=== PATIENT | male | born 1990 | race Caucasian/White ===

== ENCOUNTER 2022-05-10 20:07 | Emergency (ER) | payer BC ==
[~2022-05-10] VITALS: Ht 185.4 cm; Wt 81.6 kg
[2022-05-10 20:23] VITALS: BP_SYST 126
[2022-05-10] MEDS ORDERED: CLINDAMYCIN HCL 150 MG CAPSULE PO ONE (22:30)
[2022-05-10] MEDS ORDERED: IBUPROFEN 600 MG TABLET PO ONE (22:30)
--- NOTE | 2022-05-10 22:34 | NUR ---
PT PRESENTED TO THE ER WITH COMPLAINT OF ABCES ON RIGHT CHEEK AND LEFT HAND. PT DENIES PAIN. PT IS AOX4 VS ARE WITHIN NORMAL LIMITS. WITH THE EXCEPTION OF BP, DR PERES MADE AWARE NO CHANGE IN ORDERS
[2022-05-10] MEDS ORDERED: LIDOCAINE 1% 10 MG/ML, 20 ML MDV INJ ONE (23:15)
[2022-05-10] MEDS ORDERED: CLIN-142 PO ×3 (23:26→23:37)
[2022-05-10] MEDS ORDERED: NAPR-686 PO ×3 (23:26→23:37)
[2022-05-10] MEDS ORDERED: BACITRACIN 1 GM OINT TP ONE (23:56)
[2022-05-10] MEDS ORDERED: CLINDAMYCIN HCL 150 MG CAPSULE ONE (23:56)
[2022-05-11 00:16] VITALS: BP_SYST 145
--- NOTE | 2022-05-11 00:17 | NUR ---
Patient given written and verbal discharge instructions and verbalizes understanding. ER DR RENETTA BOLANOS discussed with patient the results and treatment provided. Patient in stable condition. ID arm band removed. Rx of CLINDAMYCIN HCL AND NAPROXEN given. Patient educated on pain management and to follow up with PMD. Pain Scale . Opportunity for questions provided and answered. Medication side effect fact sheet provided.
== END 2022-05-11 00:16 | disposition home or self-care (01) ==
LOC: SED 20:07
DX: S61.432A Puncture wound without foreign body of left hand, initial encounter (principal); L02.01 Cutaneous abscess of face; F17.200 Nicotine dependence, unspecified, uncomplicated; Z79.899 Other long term (current) drug therapy; X58.XXXA Exposure to other specified factors, initial encounter; Y93.89 Activity, other specified; Y92.89 Other specified places as the place of occurrence of the external cause; Y99.8 Other external cause status
CPT/HCPCS: 64400; 99284; J2001

== ENCOUNTER 2022-05-29 10:53 | Inpatient (IN) | payer BC ==
[~2022-05-29] VITALS: Ht 180.3 cm; Wt 83.0 kg
[~2022-05-29 10:53] MED LIST: CLIN-142 PO; NAPR-686 PO
--- NOTE | 2022-05-29 11:00 | NUR ---
Pt brought by self, A&Ox4, pt presents to ER with R forearm wound with yellow discharge , per patient he had a mechanical fall, pt afebrile, skin pink and warm, will cont to monitor
[2022-05-29 11:16] VITALS: BP_SYST 145
--- NOTE | 2022-05-29 11:31 | NUR ---
Dr Wells evaluating patient in the triage room
--- NOTE | 2022-05-29 11:33 | NUR ---
Notified ED Admitting regarding Dr. Wells's request for admission/transfer. PerDr. Wells, pt is stabke for transfer. Will notify national insurance officer regarding this matter. PER FACESHEET: [facility]
[2022-05-29] MEDS ORDERED: KETOROLAC TROMETHAMINE 30 MG VIAL IVP ONE (11:45)
[2022-05-29] MEDS ORDERED: NACL 0.9% 2,000 ML IV ONE (11:45)
[2022-05-29] MEDS ORDERED: PIPERACILLIN/TAZO 3.375 GM in NS 50 ML IV ONE (11:45)
--- NOTE | 2022-05-29 11:48 | NUR ---
covid swab done and walked to lab
[2022-05-29] MEDS ORDERED: PIPERACILLIN/TAZOBACTAM 3.375 GM/VIAL (ZOSYN) IV ONE (11:55)
[2022-05-29 12:09] LABS: BASOPHILS # (AUTO) 0.1 K/uL (0.0-0.2); BASOPHILS % (AUTO) 0.5 % (0.0-2.0); EOSINOPHILS # (AUTO) 0.1 K/uL (0.0-0.4); EOSINOPHILS % (AUTO) 0.7 % (0.0-4.0); HEMATOCRIT 29.1 % (36-54); HEMOGLOBIN 10.2 g/dL (14.0-18.0); LYMPHOCYTES % (AUTO) 6.4 % (20.5-51.5); MEAN CORPUSCULAR HEMOGLOBIN 32 pg (27-31); MEAN CORPUSCULAR HGB CONC 35 % (32-36); MEAN CORPUSCULAR VOLUME 91 fL (79.0-98.0); MONOCYTES # (AUTO) 1.2 K/uL (0.0-1.0); MONOCYTES % (AUTO) 7.8 % (1.7-9.3); NEUTROPHILS # (AUTO) 12.7 K/uL (1.8-7.7); NEUTROPHILS % (AUTO) 84.6 % (40.0-70.0); PLATELET COUNT (AUTO) 266 K/uL (130-430); RED BLOOD CELL COUNT(AUTO) 3.19 MIL/uL (4.2-6.2); RED CELL DISTRIBUTION WIDTH 12.6 % (9.0-15.0)
[2022-05-29 12:17] LABS: CALCIUM 8.5 mg/dL (8.4-11.0); CREATININE 3.49 mg/dL (0.55-1.30); POTASSIUM 3.2 mmol/L (3.5-5.1)
[2022-05-29 12:24] LABS: ALBUMIN 3.2 g/dL (3.4-4.8); TOTAL BILIRUBIN 1.1 mg/dL (0.0-1.0)
--- NOTE | 2022-05-29 14:30 | NUR ---
Report given to Grisel MORALES
[2022-05-29] MEDS ORDERED: MORPHINE 2 MG/ML INJ. SYRINGE IVP PRN ×2 (14:45)
[2022-05-29] MEDS ORDERED: ACETAMINOPHEN 325 MG TABLET PO PRN (14:45)
[2022-05-29] MEDS ORDERED: ZOLPIDEM TARTRATE 5 MG TABLET PO PRN (14:45)
[2022-05-29] MEDS ORDERED: ONDANSETRON HCL 4 MG/2 ML VIAL IVP PRN (14:45)
[2022-05-29] MEDS ORDERED: DOCUSATE SODIUM 100 MG CAPSULE PO PRN (14:45)
[2022-05-29] MEDS ORDERED: cefTRIAXone 1 GM in D5W 50 ML IV SCH (14:45)
[2022-05-29] MEDS ORDERED: NALOXONE HCL 0.4 MG/ML AMP (NARCAN) IVP PRN ×2 (14:45)
[2022-05-29] MEDS ORDERED: MAGNESIUM SULFATE 50 ML IV PRN (14:45)
[2022-05-29] MEDS ORDERED: POTASSIUM CHLORIDE 20 MEQ TAB.PRT.SR PO PRN (14:45)
[2022-05-29] MEDS ORDERED: LORazepam 2 MG/ML VIAL IVP PRN (14:45)
[2022-05-29] MEDS ORDERED: MUPIROCIN 2% TOPICAL OINTMENT 22 GM NS PRN (14:45)
--- NOTE | 2022-05-29 16:29 | NUR ---
urine collected and sent to lab.
--- NOTE | 2022-05-29 16:32 | NUR ---
patient states he is prescribed medication but does not take any medications
--- NOTE | 2022-05-29 16:34 | NUR ---
Admit bed requested Patient will be admitted to care of . Admitted to telemetry unit. Diagnosis right upper extremity cellulitis Inpatient (Yes or No) yes Observation (Yes or No) no Orientation concerns or request close to nursing station (Yes or No) no Covid Status neg On vent or bipap no Isolation requirements no Needs a sitter no From Home (Yes or if No enter name of facility) home Requires Dialysis (Yes or No) no Med Rec Completed (Yes of No) yes
--- NOTE | 2022-05-29 16:37 | NUR ---
patient states he is full code
[2022-05-29] MEDS: NACL 0.9% 1,000 ML IV SCH (17:13)
[2022-05-29 17:57] LABS: BARBITURATE, URINE NEGATIVE (NEG <=200); BENZODIAZEPINE, URINE NEGATIVE (NEG <=150); CANNABINOID, URINE POSITIVE (NEG <=50); COCAINE, URINE NEGATIVE (NEG <=150); METHAMPHETAMINES SCREEN,URINE POSITIVE (NEG <=500); OPIATE, URINE NEGATIVE (NEG <=100); PHENCYCLIDINE SCREEN,URINE NEGATIVE (NEG <=25); UR TRICYCLIC ANTIDEPRESSANTS NEGATIVE (NEG <=300); URINE AMPHETAMINE POSITIVE (NEG <=500); URINE METHADONE NEGATIVE (NEG <=200); URINE OXYCODONE SCREEN NEGATIVE (NEG <=100); URINE PROPOXYPHENE SCREEN NEGATIVE (NEG <=300)
--- NOTE | 2022-05-29 20:15 | NUR ---
Patient will be admitted to care of dr. yoo. Admitted to telemetry unit. Will go to room 120b. Complete and up to date summary report printed. SBAR report to be given at bedside with opportunity for questions.
[2022-05-29] MEDS: METOPROLOL TARTRATE 25 MG TABLET PO SCH (21:00)
[2022-05-29 21:33] VITALS: BP_SYST 131
--- NOTE | 2022-05-29 22:00 | NUR ---
pt admitted to tele. pt aox4 able to make needs known. rr even and unlabored on ra. iv lac 20g. pt denied wearing a gown. pt has wooden cane at bedside. pictures taken of wounds of head, r arm, and r hand. pulse present, r arm swollen. lung sounds clear. abd sounds present. no edema on ble. pt educated to use call light. hob elevated. all needs meet at this time. will continue to monitor.
[2022-05-29] MEDS: ceFAZolin SODIUM 1 GM in D5W 50 ML IV SCH (22:11)
[2022-05-30 00:05] VITALS: BP_SYST 128
[2022-05-30] MEDS: NACL 0.9% 1,000 ML IV SCH ×2 (00:32→09:32)
[2022-05-30] MEDS: ceFAZolin SODIUM 1 GM in D5W 50 ML IV SCH ×3 (05:32→22:25)
[2022-05-30 08:00] VITALS: BP_SYST 141
--- NOTE | 2022-05-30 08:00 | NUR ---
OPENING NOTES: PATIENT RESTING IN BED. BREATHING EVEN AND NON LABORED TO RA. DENIES ANY DISCOMFORT AT THIS TIME. FALL AND SAFETY MEASURES REINFORCED. CALL LIGHT WITHIN REACH.
[2022-05-30] MEDS: METOPROLOL TARTRATE 25 MG TABLET PO SCH ×2 (09:31→22:28)
[2022-05-30 12:00] VITALS: BP_SYST 138
[2022-05-30 12:38] LABS: BASOPHILS # (AUTO) 0.1 K/uL (0.0-0.2); BASOPHILS % (AUTO) 0.5 % (0.0-2.0); EOSINOPHILS # (AUTO) 0.3 K/uL (0.0-0.4); EOSINOPHILS % (AUTO) 2.4 % (0.0-4.0); HEMATOCRIT 28.8 % (36-54); HEMOGLOBIN 10.3 g/dL (14.0-18.0); LYMPHOCYTES # (AUTO) 1.1 K/uL (1.0-5.5); MEAN CORPUSCULAR HEMOGLOBIN 33 pg (27-31); MEAN CORPUSCULAR HGB CONC 36 % (32-36); MEAN CORPUSCULAR VOLUME 92 fL (79.0-98.0); MONOCYTES # (AUTO) 0.8 K/uL (0.0-1.0); MONOCYTES % (AUTO) 7.7 % (1.7-9.3); NEUTROPHILS # (AUTO) 8.7 K/uL (1.8-7.7); NEUTROPHILS % (AUTO) 79.4 % (40.0-70.0); PLATELET COUNT (AUTO) 272 K/uL (130-430); RED BLOOD CELL COUNT(AUTO) 3.14 MIL/uL (4.2-6.2); RED CELL DISTRIBUTION WIDTH 12.9 % (9.0-15.0)
[2022-05-30 12:54] LABS: CALCIUM 9.1 mg/dL (8.4-11.0); CREATININE 3.07 mg/dL (0.55-1.30); POTASSIUM 3.8 mmol/L (3.5-5.1)
--- NOTE | 2022-05-30 13:09 | NUR ---
PT OPTED TO SET HIS APPOINT W/ PCP: TALKED TO THE PATIENT REGARDING THE NEED TO SET AN APPT W/ PCP. PATIENT REFUSED AND OPTED TO SET HIS OWN APPOINTMENT. Addendum: 05/30/22 at 2007 by Yuan Kenyon RN WRONG ENTRY/ WRONG PATIENT.
--- NOTE | 2022-05-30 15:23 | NUR ---
RETAIL CLERK ACSW Zuleima responded to a request for social service support to address homelessness and polysubstance abuse. ACSW met with patient at bedside. Patient was awake, alert and oriented x4. ACSW completed introductions, reason for referral, provided business card and patient was open to contact. Substance Abuse- Patient text positive for amphetamine, methamphetamine and cannibinoids. 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 Longest period of sobriety [id number] after inpatient rehab. Patient appeared anxious with jerky movements and exhibiting mouth movements typical of meth use. ACSW inquired into last use and he stated he "was still high". He disclosed wanting "to get clean, I need help". Housing- Patient is currently unhoused and residing in an encampment behind [facility] in [place]. Patient declined homeless resources. Social- Patient shares his mother Jessica is part of his support system. He also shared his father but he hasn't spoken to him in about 3 months. Patient was previously , but about 4 months ago. He also shared he has been "in and out of penitentiary most of his life" with his longest [facility]dc term being 4 years. He has been out of [facility]dc for 6 years. Due to patient sharing he is still under the influence of meth and concerns with him "coming down", ACSW discussed the importance of remaining in the facility to address his current condition. ACSW also discussed the impact of substance abuse on physical and mental health. ACSW acknowledged patient's disclosure of his desire to pursue rehab and encouraged him to contact substance abuse resources. ACSW also encouraged patient to explore homeless resources but he again declined. Patient also requested for his mother to be called to inform her of hospitalization. ACSW provided patient with substance abuse resource packet. ACSW contacted patient's mother Jessica to inform her patient was admitted. ACSW will continue to be available as needed
[2022-05-30 16:02] VITALS: BP_SYST 130
--- NOTE | 2022-05-30 16:05 | NUR ---
WOUND DRAINAGE SPECIMEN SENT (right ELBOW) TO LAB AND WC DONE . WOUND DRAINAGE SPECIMEN AT RIGHT ELBOW SENT TO LAB. WOUND CARE EVALUATION DONE BY NURSE.
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
[2022-05-30] MEDS: BALSAM PERU/CASTOR OIL 56.7 GM OINT...G. TP SCH (17:33)
--- NOTE | 2022-05-30 18:55 | NUR ---
CLOSING NOTES: PATIENT RESTING IN BED. NO S/S OF ACUTE DISTRESS NOTED. FALL AND SAFETY MEASURES PROVIDED. CALL LIGHT WITHIN REACH. NEEDS MET THROUGHOUT SHIFT.
[2022-05-30 19:47] VITALS: BP_SYST 150
[2022-05-30 19:57] VITALS: BP_SYST 156
[2022-05-31] VITALS: BP_SYST 129
[2022-05-31] MEDS: NACL 0.9% 1,000 ML IV SCH ×3 (03:58→16:23)
[2022-05-31] MEDS: ceFAZolin SODIUM 1 GM in D5W 50 ML IV SCH ×2 (05:31→14:28)
--- NOTE | 2022-05-31 06:52 | NUR ---
CLOSING NOTE-PT AWAKE AND ORIENTED. RT ARM AND FINGER DRESSING INTACT. NO C/O ANY DISTRESS. TOOK AMBIEN 10 MG ORAL FOR SLEEP AND SLEPT. IVF NS AT100 ML/HR AND GIVEN ANCEF 1 G IVPB EVERY 8 HR. V/S STABLE AFEBRILE. TELE- NSR.
[2022-05-31 07:45] LABS: BASOPHILS % (AUTO) 0.5 % (0.0-2.0); EOSINOPHILS # (AUTO) 0.4 K/uL (0.0-0.4); EOSINOPHILS % (AUTO) 3.3 % (0.0-4.0); HEMATOCRIT 29.9 % (36-54); HEMOGLOBIN 10.6 g/dL (14.0-18.0); LYMPHOCYTES # (AUTO) 1.5 K/uL (1.0-5.5); LYMPHOCYTES % (AUTO) 13.2 % (20.5-51.5); MEAN CORPUSCULAR HEMOGLOBIN 32 pg (27-31); MEAN CORPUSCULAR HGB CONC 36 % (32-36); MEAN CORPUSCULAR VOLUME 91 fL (79.0-98.0); MONOCYTES # (AUTO) 0.8 K/uL (0.0-1.0); MONOCYTES % (AUTO) 7.4 % (1.7-9.3); NEUTROPHILS # (AUTO) 8.3 K/uL (1.8-7.7); NEUTROPHILS % (AUTO) 75.6 % (40.0-70.0); PLATELET COUNT (AUTO) 302 K/uL (130-430); RED BLOOD CELL COUNT(AUTO) 3.27 MIL/uL (4.2-6.2); RED CELL DISTRIBUTION WIDTH 12.6 % (9.0-15.0)
[2022-05-31 08:00] VITALS: BP_SYST 122
[2022-05-31 08:05] LABS: ALBUMIN 2.9 g/dL (3.4-4.8); CREATININE 3.14 mg/dL (0.55-1.30); POTASSIUM 3.9 mmol/L (3.5-5.1); TOTAL BILIRUBIN 0.2 mg/dL (0.0-1.0)
[2022-05-31] MEDS: BALSAM PERU/CASTOR OIL 56.7 GM OINT...G. TP SCH (09:00)
[2022-05-31] MEDS: METOPROLOL TARTRATE 25 MG TABLET PO SCH (09:31)
--- NOTE | 2022-05-31 10:00 | NUR ---
Dietitian Recommendations: - Continue regular diet - Please provide Ensure Enlive BID - Consider multivitamin w/ minerals, vitamin C to support healing Please refer to nutrition assessment for details. YADIRA KOEHLER
[2022-05-31 15:30] VITALS: BP_SYST 135
--- NOTE | 2022-05-31 20:00 | NUR ---
Patient leaves AMA Patient AOx4, BRP. On room air. Stable. Patient insisting on leaving AMA. Educated patient towards plan of care as well as risks of leaving hospital without finishing antibiotic treatment/ further treatments. Patient still insistent regardless. Also notified Dr. Ramirez, covering for Dr. Harrell at this time. Patient signed AMA paper to leave. Left hospital at this time.
[2022-05-31] MEDS ORDERED: CLIN-22 PO (22:16)
== END 2022-05-31 20:00 | disposition left against medical advice (07) | DRG 720 ==
LOC: SED 10:53 → STU 13:11
PROVIDERS: ADMIT General Practice; ATTEND General Practice
DX: A41.9 Sepsis, unspecified organism (principal); N17.0 Acute kidney failure with tubular necrosis; E44.1 Mild protein-calorie malnutrition; L03.113 Cellulitis of right upper limb; D63.8 Anemia in other chronic diseases classified elsewhere; E80.6 Other disorders of bilirubin metabolism; Z20.822 Contact with and (suspected) exposure to COVID-19; F17.210 Nicotine dependence, cigarettes, uncomplicated; N18.9 Chronic kidney disease, unspecified; Z79.899 Other long term (current) drug therapy; Z85.47 Personal history of malignant neoplasm of testis; Z80.9 Family history of malignant neoplasm, unspecified
CPT/HCPCS: 36415; 76770; 80048; 80053; 80307; 83036; 83605; 83735; 85025; 87040; 87070-TC; 87186-TC; 96361; 96374; 96375; 99285; G0378; J0690; J1885; J2543; J7060